=== PATIENT | female | born 1945 | race Caucasian/White ===

== ENCOUNTER 2022-06-26 21:15 | Emergency (ER) | payer MEDICARE, BC, SELFPAY ==
[2022-06-26] VITALS (11 sets, daily range): BP systolic 160–186; BP diastolic 61–90; PULSE 63–73; RESP 20; TEMP 36.2; O2SAT 94–98; BMI 36.3
--- NOTE | 2022-06-26 21:49 | CRLHL7_ITS ---
For Patients: As a result of the Century Cures Act, medical imaging exams and procedure reports are released immediately into your electronic medical record. You may view this report before your referring provider. If you have questions, please contact your health care provider. INDICATION: Right calf pain. History of pulmonary embolism. COMPARISON: None available. FINDINGS: Ultrasound of the venous drainage of the right lower extremity was performed using real-time wagner scale imaging (B mode 2D), color flow Doppler and spectral analysis. There is no evidence of deep venous thrombosis. There is normal antegrade flow from the posterior tibial and peroneal veins superiorly through the common femoral vein. There is normal augmentation and compressibility of these veins. The right greater saphenous vein in the superior and mid thigh is widely patent. The left common femoral vein is widely patent. IMPRESSION: No evidence of deep venous thrombosis on ultrasound examination of the right lower extremity. Dictated by Silver Bennett MD @ 06/26/2022 11:59:47 PM (Electronically Signed)
--- NOTE | 2022-06-26 22:15 | ED.GENADULT ---
HPI - General Adult General Time Seen by Provider: 22:15 Date Seen: 06/26/22 Chief complaint: Shortness of Breath/Dyspnea Stated complaint: concern that she has a blood clot Time Seen by Provider: 06/26/22 22:15 Source: patient and RN notes reviewed Mode of arrival: ambulatory Limitations: no limitations History of Present Illness HPI narrative: Marco is a 76-year-old female coming in with concern of a possible blood clot. She noticed a little hill horse of her calf. Today she is feeling more short of breath. She does have a history of a pulmonary embolus after car travel to [place]. She has had no chest pain, no cough or cold symptoms. Denies any trauma. She did note that both of her feet and lower legs started to feel tingly on her drive over here. Related Data Home Medications Medication Instructions Recorded Confirmed aspirin 81 mg tablet,delayed 81 mg PO DAILY 09/28/21 06/26/22 release calcium carbonate 600 mg calcium 600 mg PO QDAY 09/28/21 06/26/22 (1,500 mg) tablet (Calcium) cholecalciferol (vitamin D3) 25 2,000 unit PO QDAY 09/28/21 06/26/22 mcg (1,000 unit) capsule fluticasone propionate 50 1 spray intranasal DAILY 09/28/21 06/26/22 mcg/actuation nasal spray,suspension ktzvqjldoey-ezfkjjtrnya-rds C 500 1 tab PO DAILY 09/28/21 06/26/22 mg-400 mg-20 mg tablet loratadine 10 mg tablet 10 mg PO QDAY 09/28/21 06/26/22 omega-3 fatty acids 1,000 mg 1,000 mg PO QDAY 09/28/21 06/26/22 capsule alendronate 70 mg tablet 70 mg PO 06/26/22 Allergies Allergy/AdvReac Type Severity Reaction Status Date / Time No Known Allergies Allergy Verified 05/11/22 11:05 Review of Systems Status of ROS: Reports: 10 or more systems reviewed and unremarkable except as noted in History and below [facility] Medical History Arthritis ?M19.90 - Unspecified osteoarthritis, unspecified site (ICD-10) Basal cell carcinoma (BCC) ?C44.91 - Basal cell carcinoma of skin, unspecified (ICD-10) Dyspnea on exertion ?R06.09 - Other forms of dyspnea (ICD-10) History of blood clots ?Z86.718 - Personal history of other venous thrombosis and embolism (ICD-10) Hyperlipidemia ?E78.5 - Hyperlipidemia, unspecified (ICD-10) Numbness and tingling sensation of skin ?R20.0 - Anesthesia of skin (ICD-10) ?R20.2 - Paresthesia of skin (ICD-10) Osteopenia ?M85.80 - Other specified disorders of bone density and structure, unspecified site (ICD-10) Pulmonary embolism ?I26.99 - Other pulmonary embolism without acute cor pulmonale (ICD-10) Surgical History History of cholecystectomy (~2003) ?Z90.49 - Acquired absence of other specified parts of digestive tract (ICD-10) History of herniorrhaphy (~2003) ?Z98.890 - Other specified postprocedural states (ICD-10) ?Z87.19 - Personal history of other diseases of the digestive system (ICD-10) S/P right knee arthroscopy (05/10/12) ?Z98.890 - Other specified postprocedural states (ICD-10) Family History Father Diabetes High blood pressure Coronary artery disease Mother No problems noted. Sister Lung cancer Breast cancer Coronary artery disease Brother Hodgkin's disease Social History Smoking Status: Never smoker Do you use any of these nicotine containing products: None Second hand tobacco smoke exposure: No Exam Const: Vital Signs, click to edit/add: Vital Signs - 24 hr 06/26/22 21:41 06/26/22 22:15 06/26/22 22:32 Temperature 97.1 F L Pulse Rate 72 Pulse Rate [Pulse Oximeter] 73 Respiratory Rate 20 Blood Pressure Blood Pressure [Ri ght Upper Arm] 160/90 H Pulse Oximetry 95 96 97 Oxygen Delivery Me thod 06/26/22 22:33 06/26/22 22:34 06/26/22 22:45 Temperature Pulse Rate 69 69 63 Pulse Rate [Pulse Oximeter] Respiratory Rate Blood Pressure 186/82 H Blood Pressure [Ri ght Upper Arm] Pulse Oximetry 96 95 96 Oxygen Delivery Me thod 06/26/22 23:00 06/26/22 23:03 06/26/22 23:15 Temperature Pulse Rate 70 68 67 Pulse Rate [Pulse Oximeter] Respiratory Rate Blood Pressure 161/61 H Blood Pressure [Ri ght Upper Arm] Pulse Oximetry 97 95 94 Oxygen Delivery Me thod 06/26/22 23:40 06/26/22 23:45 06/27/22 00:00 Temperature Pulse Rate 71 66 70 Pulse Rate [Pulse Oximeter] Respiratory Rate Blood Pressure Blood Pressure [Ri ght Upper Arm] Pulse Oximetry 98 98 96 Oxygen Delivery Me thod 06/27/22 00:02 06/27/22 00:02 06/27/22 00:02 Temperature Pulse Rate 64 64 64 Pulse Rate [Pulse Oximeter] Respiratory Rate Blood Pressure 168/81 H 168/81 H 168/81 H Blood Pressure [Ri ght Upper Arm] Pulse Oximetry 95 95 95 Oxygen Delivery Me thod 06/27/22 00:02 06/27/22 00:15 06/27/22 00:30 Temperature Pulse Rate 64 66 69 Pulse Rate [Pulse Oximeter] Respiratory Rate Blood Pressure 168/81 H Blood Pressure [Ri ght Upper Arm] Pulse Oximetry 95 96 96 Oxygen Delivery Me thod 06/27/22 01:02 Temperature Pulse Rate Pulse Rate [Pulse Oximeter] 63 Respiratory Rate 16 Blood Pressure Blood Pressure [Ri ght Upper Arm] 172/82 H Pulse Oximetry 97 Oxygen Delivery Me thod Room Air Documenting provider has reviewed patient's vital signs: yes Common normals: no apparent distress, oriented x3, no limitations, healthy appearing, alert and well nourished General appearance: cooperative, comfortable, well kempt and well developed Nutritional appearance: obese HENMT: Common normals: normocephalic, head/scalp atraumatic and hearing grossly normal bilaterally Head and scalp: normocephalic and atraumatic Eye: Common normals: PERRL, EOMs intact bilaterally, conjunctivae normal and no scleral icterus Conjunctiva: conjunctiva(e) normal Pupil: PERRL Neck & C-Spine: Common normals: full ROM, no lymphadenopathy, supple and no JVD Resp: Common normals: normal respiratory effort, no retractions, no use of accessory muscles and clear to auscultation bilaterally Auscultation: clear to auscultation bilaterally Cardio: Common normals: no JVD, regular rate, regular rhythm, S1 normal heart sound, S2 normal heart sound, no gallops, no clicks and no murmurs Rate: regular rate Rhythm: regular rhythm Heart sounds: S1 normal and S2 normal GI: Common normals: Normal to inspection, nondistended, normoactive bowel sounds present, soft to palpation, non-tender, no hepatosplenomegaly and no masses Palpation: soft and no hepatosplenomegaly Extremity: Other: No erythema or edema of her lower extremities. She feels a little soreness in her left mid calf area. Has symmetric appearance of her lower extremities without any erythema or vascular changes. Neuro: Common normals: oriented x3 Sensorium/orientation: alert Speech: speech normal Gait (neuro): normal gait Psych: Appearance: well kempt Course Course Hospital Course: Given her history and complaint of shortness of breath, do think we need to proceed with chest CT PE protocol. We will also obtain an ultrasound of her right lower extremity. Will do full complement of labs including cardiac enzyme. She will be on pulse oximetry and cardiac monitoring while here. Need to consider thromboembolic disease, rule out cardiac causes in respiratory causes for shortness of breath. Reevaluation(s) Reevaluation #1: Have reviewed with patient her negative ultrasound for DVT of her leg. We have reviewed her labs, did review the D-dimer being mildly elevated. We are awaiting her chest CT PE protocol at this time. She remains hemodynamically stable, no hypoxia. Time: 00:30 Reevaluation #2: Have reviewed her negative chest CT PE protocol. Will discharge to home for further outpatient follow-up with her primary care provider. Time: 01:13 Vital Signs Vital signs: Initial Vital Signs Respiratory Effort Normal, Spontaneous, Non-Labored 06/26/22 21:15 Respiratory Depth Normal 06/26/22 21:15 Respiratory Pattern Normal 06/26/22 21:15 Vital Signs Temperature 97.1 F L 06/26/22 21:41 Pulse Rate 73 06/26/22 21:41 Respiratory Rate 20 06/26/22 21:41 Blood Pressure 160/90 H 04/15/23 21:41 Pulse Oximetry 95 06/26/22 21:41 Temperature 97.1 F L 06/26/22 21:41 Pulse Rate 63 06/27/22 01:02 Respiratory Rate 16 06/27/22 01:02 Blood Pressure 172/82 H 06/27/22 01:02 Pulse Oximetry 97 06/27/22 01:02 Oxygen Delivery Method Room Air 06/27/22 01:02 Medical Decision Making Lab Data Lab results reviewed: Yes I reviewed the patient's lab results Labs: Lab Results 06/26/22 Range/Units 22:25 WBC 6.85 (4.50-11.00) K/uL RBC 4.14 (4.00-5.20) m/uL Hgb 11.5 L (12.0-16.0) gm/dL Hct 35.6 (33.0-51.0) % MCV 86 (80-100) fL MCH 28 (26-34) pg MCHC 32 (32-36) gm/dL RDW Coeff of Earnest 14.6 (11.5-15.5) % Plt Count 190 (140-440) K/uL Neut % (Auto) 62.6 (42.0-72.0) % Lymph % (Auto) 24.4 (20-44) % [place] % (Auto) 8.2 (0.0-11.0) % Eos % (Auto) 3.5 (0.0-7.0) % Baso % (Auto) 0.4 (0.0-3.0) % Neut # (Auto) 4.29 (1.7-7.0) K/uL Lymph # (Auto) 1.67 (0.90-2.90) K/uL [place] # (Auto) 0.60 (0.00-0.90) K/UL Eos # (Auto) 0.24 (0.00-0.50) K/uL Baso # (Auto) 0.03 (0.00-0.30) K/uL INR 0.86 L (0.91-1.10) APTT 23 (23-33) Seconds D-Dimer Quant (PE/DVT) 0.80 H (0.00-0.50) ug/ml VBG pH 7.349 (7.32-7.43) VBG pCO2 53 H (40-50) mmHG VBG pO2 40.4 (25-47) mmHG VBG HCO3 29 H (21-28) mmol/L Sodium 137 (135-149) mmol/L Potassium 4.4 (3.6-5.1) mmol/L Chloride 106 (96-114) mmol/L Carbon Dioxide 28 (20-32) mmol/L BUN 20 (7-30) mg/dL Creatinine 1.2 (0.5-1.5) mg/dL Estimated Creat Clear 38.50 Estimated GFR 48 ml/min Glucose 101 (60-115) mg/dL Calcium 10.0 (8.4-10.6) mg/dL Total Bilirubin 1.0 (0.1-1.5) mg/dL AST 28 (12-35) U/L ALT 24 (4-35) U/L Alkaline Phosphatase 71 (40-150) U/L Troponin I < 0.01 L (0.01-0.04) ng/mL NT-Pro-B Natriuret Pep 177 pg/mL Total Protein 6.9 (6.0-8.3) g/dL Albumin 4.1 (3.3-5.0) g/dL Imaging Data CT scan - chest: Attestation: I have reviewed the pertinent imaging results. Radiologist's impression: Patient: YEFRI DODGE Facility:?[facility] Patient ID:?[id number] Site Patient ID:?[id number]. Site :?[id number] Study:?CT Chest Angio PE /IV-06/26/2022 11:46:03 PM Ordering Physician:Perez Glez Final Report: INDICATION: Shortness of breath. History of PE.. TECHNIQUE: CT chest PE was acquired with 95 cc Isovue 370 IV contrast. COMPARISON: None. FINDINGS: Heart and vasculature: Contrast opacification of the pulmonary arterial tree is adequate. No sign of pulmonary embolism. Heart size is normal. Thoracic aorta and pulmonary artery are normal in caliber. Lungs and pleura: No suspicious nodules or infiltrates. No pleural effusions, pleural thickening, or pneumothorax. Lymph nodes/mediastinum: No mediastinal, hilar, or axillary adenopathy. Chest wall: No masses. Upper abdomen: No acute or significant findings. Status post cholecystectomy. Bones: Unremarkable for age. IMPRESSION: No pulmonary embolism identified. Please note that all CT scans at this facility use dose modulation, iterative reconstruction, and/or weight-based dosing when appropriate to reduce radiation dose to as low as reasonably achievable. Dictated by Opal Eason MD @ 06/27/2022 1:01:56 AM (Electronic Signature) Venous US: Attestation: I have reviewed the pertinent imaging results. Radiologist's impression: Patient: YEFRI DODGE Facility:?[facility] Patient ID:?[id number] Site Patient ID:?[id number]. Site :?[id number] Study:?US Extremity Right DVT-06/26/2022 11:19:28 PM Ordering Physician:Perez Glez Final Report: INDICATION: Right calf pain. History of pulmonary embolism. COMPARISON: None available. FINDINGS: Ultrasound of the venous drainage of the right lower extremity was performed using real-time wagner scale imaging (B mode 2D), color flow Doppler and spectral analysis. There is no evidence of deep venous thrombosis. There is normal antegrade flow from the posterior tibial and peroneal veins superiorly through the common femoral vein. There is normal augmentation and compressibility of these veins. The right greater saphenous vein in the superior and mid thigh is widely patent. The left common femoral vein is widely patent. IMPRESSION: No evidence of deep venous thrombosis on ultrasound examination of the right lower extremity. Dictated by Silver Bennett MD @ 06/26/2022 11:59:47 PM (Electronic Signature) ECG Data Attestation: I personally reviewed and interpreted this ECG as follows: (Normal sinus rhythm, 62 beats per minute. No definitive ischemic change noted. QT corrected 414 milliseconds.) Prior ECG tracings: not available for review Discharge Plan Discharge Clinical Impression: Shortness of breath, Right calf pain, Hx of pulmonary embolus Patient Disposition: Home, Self-Care Condition: Stable Instructions: Shortness of Breath (ED) Additional Instructions: Recommend return for further evaluation if you have increasing shortness of breath, developed chest pain, fever cough with it. Otherwise follow up in clinic within the next couple weeks, have them recheck your blood pressure as it was elevated here in the ER. There is no evidence of a DVT or pulmonary embolus at this time. Activity Level: Activity as Tolerated Prescriptions: No Action fluticasone propionate 50 mcg/actuation spray,suspension 1 spray intranasal DAILY aspirin 81 mg tablet,delayed release (DR/EC) 81 mg PO DAILY omega-3 fatty acids 1,000 mg capsule 1,000 mg PO QDAY loratadine 10 mg tablet 10 mg PO QDAY tfyvuvgmruz-dohuyuxkiwl-woq C 500-400-20 mg tablet 1 tab PO DAILY cholecalciferol (vitamin D3) 25 mcg (1,000 unit) capsule 2,000 unit PO QDAY calcium carbonate [Calcium 600] 600 mg calcium (1,500 mg) tablet 600 mg PO QDAY alendronate 70 mg tablet 70 mg PO Follow Up/Referrals: Ngozi Horne DO [Primary Care Provider] - Stand Alone Forms: [facility] Info Inst[facility]
--- NOTE | 2022-06-26 22:16 | CRLHL7_ITS ---
For Patients: As a result of the Century Cures Act, medical imaging exams and procedure reports are released immediately into your electronic medical record. You may view this report before your referring provider. If you have questions, please contact your health care provider. INDICATION: Shortness of breath. History of PE.. TECHNIQUE: CT chest PE was acquired with 95 cc Isovue 370 IV contrast. COMPARISON: None. FINDINGS: Heart and vasculature: Contrast opacification of the pulmonary arterial tree is adequate. No sign of pulmonary embolism. Heart size is normal. Thoracic aorta and pulmonary artery are normal in caliber. Lungs and pleura: No suspicious nodules or infiltrates. No pleural effusions, pleural thickening, or pneumothorax. Lymph nodes/mediastinum: No mediastinal, hilar, or axillary adenopathy. Chest wall: No masses. Upper abdomen: No acute or significant findings. Status post cholecystectomy. Bones: Unremarkable for age. IMPRESSION: No pulmonary embolism identified. Please note that all CT scans at this facility use dose modulation, iterative reconstruction, and/or weight-based dosing when appropriate to reduce radiation dose to as low as reasonably achievable. Dictated by Opal Eason MD @ 06/27/2022 1:01:56 AM (Electronically Signed)
[2022-06-26 22:35] LABS: Basophils Absolute Auto 0.03 K/uL (0.00-0.30); Basophils Percent Auto 0.4 % (0.0-3.0); Eosinophils Absolute Auto 0.24 K/uL (0.00-0.50); Eosinophils Percent Auto 3.5 % (0.0-7.0); HCO3 VBG 29 mmol/L (21-28); Hematocrit 35.6 % (33.0-51.0); Hemoglobin* 11.5 gm/dL (12.0-16.0); Immature Granulocytes Abs Auto 0.06 K/uL (0.00-0.30); Immature Granulocytes Pct Auto 0.9 %; Lymphocytes Absolute Auto 1.67 K/uL (0.90-2.90); Lymphocytes Percent Auto 24.4 % (20-44); Mean Corpuscular HGB Conc 32 gm/dL (32-36); Mean Corpuscular Hemoglobin 28 pg (26-34); Mean Corpuscular Volume 86 fL (80-100); Monocytes Percent Auto 8.2 % (0.0-11.0); Neutrophils Absolute Auto 4.29 K/uL (1.7-7.0); Neutrophils Percent Auto 62.6 % (42.0-72.0); PCO2 VBG 53 mmHG (40-50); PO2 VBG 40.4 mmHG (25-47); Platelet Count* 190 K/uL (140-440); RDW Coefficient of Variation % 14.6 % (11.5-15.5); Red Blood Count 4.14 m/uL (4.00-5.20); White Blood Count* 6.85 K/uL (4.50-11.00); pH VBG 7.349 (7.32-7.43)
[2022-06-26 22:36] LABS: Slide Review Reflex No
[2022-06-26 22:51] LABS: Albumin* 4.1 g/dL (3.3-5.0)
[2022-06-26 22:52] LABS: Chloride* 106 mmol/L (96-114); Potassium* 4.4 mmol/L (3.6-5.1); Sodium* 137 mmol/L (135-149)
[2022-06-26 22:54] LABS: Carbon Dioxide* 28 mmol/L (20-32); Creatinine* 1.2 mg/dL (0.5-1.5); Estimated Glomerular Filt Rate 48 ml/min; INR 0.86 (0.91-1.10); Partial Thromboplastin Time* 23 Seconds (23-33); Prothrombin Time 12.2 Seconds
[2022-06-26 22:55] LABS: Alanine Aminotransferase* 24 U/L (4-35); Alkaline Phosphatase* 71 U/L (40-150); Aspartate Amino Transferase* 28 U/L (12-35); Blood Urea Nitrogen* 20 mg/dL (7-30); Glucose* 101 mg/dL (60-115); Total Protein* 6.9 g/dL (6.0-8.3)
[2022-06-26 23:11] LABS: NT Pro B Type NatriureticPept* 177 pg/mL; Troponin I* < 0.01 ng/mL (0.01-0.04)
[2022-06-27] VITALS: PULSE 70; O2SAT 96
[2022-06-27 00:02] VITALS: BP 168/81; PULSE 64; O2SAT 95
[2022-06-27 00:15] VITALS: PULSE 66; O2SAT 96
[2022-06-27 00:30] VITALS: PULSE 69; O2SAT 96
[2022-06-27 01:02] VITALS: BP 172/82; PULSE 63; RESP 16; O2SAT 97
== END 2022-06-27 01:30 | disposition home or self-care (01) ==
PROVIDERS: Emergency Provider Family Medicine; PCP Family Medicine
DX: R06.02 Shortness of breath (principal); M79.661 Pain in right lower leg
CPT/HCPCS: 36415; 71260; 80053; 82803; 83880; 84484; 85025; 85379; 85610; 85730; 93005; 93971; 94761; 99284; 99285; Q9967

== ENCOUNTER 2022-08-24 11:45 | Outpatient (RCR) | payer MEDICARE, BC, SELFPAY | END 2022-08-26 10:42 | disposition home or self-care (01) | PROVIDERS: PCP Family Medicine; Visit Provider Family Medicine | DX: M79.602 Pain in left arm (principal); Z51.89 Encounter for other specified aftercare | CPT/HCPCS: 97110; 97140; 97163 ==

== ENCOUNTER 2024-03-09 13:30 | Outpatient (RCR) | payer MEDICARE, BC, SELFPAY | END 2024-03-12 07:52 | disposition home or self-care (01) | PROVIDERS: PCP Family Medicine; Visit Provider Family Medicine | DX: R26.89 Other abnormalities of gait and mobility (principal); R26.81 Unsteadiness on feet; Z51.89 Encounter for other specified aftercare | CPT/HCPCS: 97110; 97112; 97161 ==

== ENCOUNTER 2024-10-16 10:00 | Outpatient (RCR) | payer MEDICARE, BC, SELFPAY | END 2024-10-16 10:38 | disposition home or self-care (01) | PROVIDERS: PCP Family Medicine; Visit Provider Orthopaedic Surgery Sports Medicine | DX: M17.0 Bilateral primary osteoarthritis of knee (principal); M70.51 Other bursitis of knee, right knee; Z51.89 Encounter for other specified aftercare | CPT/HCPCS: 97110; 97140; 97161 ==